=== PATIENT | female | born 1975 | race American Indian/Alaskan Native ===

== ENCOUNTER 2021-03-03 14:21 | Emergency (ER) | payer OTHER ==
[2021-03-03 15:12] VITALS: BP 148/92
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
== END 2021-03-03 16:00 | disposition home or self-care (01) ==
LOC: ED 14:21
DX: M54.2 Cervicalgia (principal); M54.6 Pain in thoracic spine; M25.519 Pain in unspecified shoulder; I10 Essential (primary) hypertension; F17.200 Nicotine dependence, unspecified, uncomplicated; F12.90 Cannabis use, unspecified, uncomplicated; Z79.899 Other long term (current) drug therapy; V87.7XXA Person injured in collision between other specified motor vehicles (traffic), initial encounter; Y93.89 Activity, other specified; Y92.488 Other paved roadways as the place of occurrence of the external cause; Y99.8 Other external cause status
CPT/HCPCS: 99282